=== PATIENT | female | born 1975 | race Caucasian/White ===

== ENCOUNTER 2023-07-12 07:44 | Emergency (ER) | payer OTHER, SELFPAY ==
[2023-07-12 07:51] VITALS: BP 136/96
[2023-07-12 08:12] LABS: % Basophils 0.8 % (0-2); % Eosinophils 2.6 % (0-6); % Immature Granulocytes 0.2 % (0-0.5); % Lymphocytes 34.7 % (20.5-51.1); % Monocytes 8.6 % (1.7-9.3); % Neutrophils 53.1 % (42.2-75.2); Absolute Basophils 0.1 10^3/uL (0-0.2); Absolute Eosinophils 0.2 10^3/uL (0-0.7); Absolute Lymphocytes 2.2 10^3/uL (1.2-3.4); Absolute Monocytes 0.5 10^3/uL (0.1-0.6); Absolute Neutrophils 3.3 10^3/uL (1.4-6.5); Hematocrit 38.1 % (37.0-47.0); Hemoglobin 12.9 g/dL (12.0-16.0); Mean Corp Hgb Conc. 33.9 g/dL (33.0-37.0); Mean Corpuscular Hgb 30.1 pg (27.0-31.0); Mean Corpuscular Volume 88.8 fL (81.0-99.0); Mean Platelet Volume 10.6 fL (7.4-10.4); Nucleated Red Blood Cells % 0 %; Platelet Count 378 10^3/uL (130-400); Red Blood Cell Count 4.29 10^6/uL (4.20-5.40); Red Cell Dist. Width 13.1 % (11.5-14.5); White Blood Cell Count 6.3 10^3/uL (4.8-10.8)
[2023-07-12 08:25] LABS: ALT (SGPT) 23 U/L (0-35); AST (SGOT) 24 U/L (14-36); Albumin 4.6 g/dl (3.5-5.0); Alkaline Phosphatase 56 U/L (38-126); Blood Urea Nitrogen 12 mg/dl (7-17); Calcium 9.6 mg/dl (8.4-10.2); Carbon Dioxide 22 mmol/L (22-30); Chloride 107 mmol/L (98-107); Glucose 114 mg/dl (70-99); Sodium 137 mmol/L (135-145); Total Bilirubin 0.3 mg/dl (0.2-1.3); Total Protein 7.3 g/dl (6.3-8.2); eGFR > 60.00
[2023-07-12 08:29] LABS: HCG, Serum Qualitative Screen Negative
[2023-07-12 08:35] LABS: Troponin I < 0.012 ng/ml
[2023-07-12 09:09] VITALS: BP 130/67
[2023-07-12 09:10] VITALS: BMI 28.8
[2023-07-12 10:00] VITALS: BP 122/67
--- NOTE | 2023-07-12 10:50 | ED.GENMED ---
History of Present Illness
General
Chief Complaint: Chest Problem
Source: patient and significant other (carroll)
Exam Limitations: none
Time Seen by Provider: 07/12/23 09:10
Travel History
Have you had any contact with someone who has COVID-19?: No
Do you have any symptoms of coronavirus? Fever > 100 degrees, chills, cough, shortness of breath, sore throat, loss of taste or smell, muscle aches, or headache?: No
History of Present Illness
History of Present Illness:
47-year-old female who presents with a variety of complaints. Most notably she is worried about her heart rate. She states her heart rate is typically 80 or 90 and recently has dropped down in the 50s when she is resting. Patient states she
checks her heart rate on her Apple Watch. She recently quit quit drinking alcohol. She also recently in the past had been on Valium but switched over to Xanax. She takes up to 2 mg of Xanax a day. Patient states she has been worried about her
heart rate dropping and whether she could pass out. 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 She states at times she feels a little out of breath and a little bit lightheaded. She also admits that her
anxiety is not controlled well. She is scheduled to see her psychiatrist again this week. She denies chest pain. No fevers. No illicit drugs. Patient states that she keeps checking [employer] and asking questions about her heart rate
Past History
Past History
ED Past Medical History: GERD and Psychiatric (Anxiety)
ED Past Surgical History: (X 2)
Social History
Tobacco: Former smoker
Drug: None
Personal:
Living: with family
Phy Exam
Physical Exam
Physical Exam:
CONSTITUTIONAL Patient alert and oriented to person, place and time. Well-appearing. Vital signs reviewed.
HEAD atraumatic, normocephalic.
EYES eyelids normal to inspection, Pupils equally round and reactive to light, Extraocular muscles intact, Conjunctiva normal, Sclera normal.
NECK normal range of motion, Trachea midline, no jugular venous distention.
RESPIRATORY CHEST No respiratory distress noted, Chest expansion equal, Bilateral breath sounds clear.
CARDIOVASCULAR regular rate and rhythm, Heart sounds normal.
ABDOMEN abdomen nontender, Bowel sounds normal. No distention.
BACK normal inspection, no obvious deformities
UPPER EXTREMITY range of motion normal, Motor strength normal, no cyanosis, no edema.
LOWER EXTREMITY range of motion normal, Motor strength normal, no cyanosis, no edema.
NEURO Speech normal, No focal motor deficits, Mccomb coma scale 15, Memory normal, Cranial Nerves intact to screening exam.
SKIN skin warm, dry, and normal in color.
PSYCHIATRIC patient oriented to person place and time, Normal affect.
Course
Orders/Labs/Results
Orders:
Orders
07/12/23 07:46
EKG [Electrocardiogram (*1)] Urgent
Reason for Study: Tachycardia
EKG- Treatment ONCE
07/12/23 07:55
Test Result ONCE
07/12/23 07:57
Complete Blood Count/With Diff Urgent
Comprehensive Metabolic Panel Urgent
HCG, Serum Qualitative Screen Urgent
Troponin I Urgent
Abnormal Lab Results
07/12/23
07:57
MPV 10.6 H fL
(7.4-10.4)
Glucose 114 H mg/dl
(70-99)
07/12/23 07:57
07/12/23 07:57
Vital Signs
Initial and Last Documented VS:
Initial Vital Signs
Temp Pulse Resp BP Pulse Ox
98.0 F 85 16 136/96 100
07/12/23 07:51 07/12/23 07:51 07/12/23 07:51 07/12/23 07:51 07/12/23 07:51
Last Documented Vital Signs
Temp Pulse Resp BP Pulse Ox
98.0 F 61 17 122/67 98
07/12/23 07:51 07/12/23 10:00 07/12/23 10:00 07/12/23 10:00 07/12/23 10:00
MDM/Problems Addressed
MDM/Problems Addressed:
Anxiety, benzodiazepine use
*Pulse Oximetry
Patient hypoxic: no
*EKG
Interpreted by ED Provider?: Yes
Interpretation: normal
Rate: normal
Rhythm: sinus
[place]: normal axis
Interval: normal interval
Ischemia: no ischemia
*Distribution Center Supervisor Interpretation
Rate: normal
Interpretation: normal
Rhythm: sinus
*Critical Care Note
Total Time (30-74mins, 75-104mins- exclusive of procedures): Not Applicable
Data Reviewed
Source: patient and significant other
Prescriptions/Medications Considered But Not Given:
Consider Lexapro with patient is tried that in the past and she will follow-up with her psychiatrist
Patient Management
Escalation/DeEscalation of care consider admission/obs:
Patient peers quite well. She is overly concerned about her heart rate. Her EKG is normal. She admits that she thinks much of this is just her anxiety and her perseveration over her heart rate and her medications and her symptoms. She truly has
minimal symptoms but more worried she will develop symptoms. She has an appoint with her psychiatrist this week. I did ask her to consider alternatives to halfway use of benzodiazepines. She agrees. Okay for discharge
ED Attending Note
-
Portions of this chart may have been created with voice recognition software.� Occasional wrong word or��sound alike� substitutions may have occurred due to the inherent limitations of voice recognition software.
Discharge Plan
Departure
Patient Disposition: Home (Routine Discharge)
Date of Disposition: 07/12/23
Time of Disposition: 10:56
Patient with high blood pressure during this ER visit?: No
Discharge Problem:
Dyspnea, Anxiety
Instructions: Anxiety, Adult (DC)
Prescriptions:
No Action
Pepcid AC 10 MG tablet,chewable
20 mg PO DAILY
diazepam [Valium] 10 MG tablet
10 mg PO DAILYPRN PRN (Reason: anxiety)
zolpidem [Ambien] 10 mg Tablet
10 mg PO HS PRN (Reason: sleep)
amoxicillin-pot clavulanate 875-125 mg tablet
1 tab PO BID Qty: 20 0RF
tramadol 50 mg tablet
50 mg PO Q8H PRN (Reason: pain) Qty: 14 0RF
pantoprazole [Protonix] 40 mg tablet,delayed release (DR/EC)
40 mg PO DAILY Qty: 10 0RF
ondansetron 4 mg tablet,disintegrating
4 mg PO Q8H PRN (Reason: nausea and vomiting) Qty: 10 0RF
Referrals:
Carlos Manuel Jimenez MD [Family Provider] -
Activity Restrictions/Additional Instructions:
Please see your doctor and psychiatrist in follow-up this week. Please strongly consider alternatives to chronic benzodiazepine use. In addition, I recommend that you refrain from checking your heart rate frequently and only if you have profound
symptoms. Return immediately for chest pain, palpitations, worsening shortness of breath, fevers or any other concerns.
Interventions
Interventions:
*Risk Screen - Suicide Last Done: 07/12/23 09:10
*General Assessment Last Done: 07/12/23 09:10
*Neglect/Abuse Screening Last Done: 07/12/23 09:10
ED- Fall Risk Assessment Last Done: 07/12/23 09:10
*ED COVID-19 Vaccine History Last Done: 07/12/23 07:51
ED- Cardiac Assessment Last Done: 07/12/23 09:14
ED- Pulmonary Assessment Last Done: 07/12/23 09:14
Discharge Date and Time
Print Language: YEMENI
[2023-07-12 11:00] VITALS: BP 120/77
== END 2023-07-12 11:10 | disposition home or self-care (01) ==
LOC: EMR 07:44
PROVIDERS: Emergency Medicine; EMERGENCY PHYSICIAN Emergency Medicine; FAMILY PHYSICIAN Family Medicine
DX: F41.9 Anxiety disorder, unspecified (principal); R06.00 Dyspnea, unspecified; Z87.891 Personal history of nicotine dependence
CPT/HCPCS: 99284; 80053; 84484; 84703; 85025; 93005

== ENCOUNTER 2023-10-11 15:41 | Emergency (ER) | payer OTHER, SELFPAY ==
[2023-10-11] VITALS (7 sets, daily range): BP systolic 109–151; BP diastolic 53–104; PULSE 80–108
--- NOTE | 2023-10-11 18:42 | ED.GENMED ---
History of Present Illness
General
Chief Complaint: Dizziness
Time Seen by Provider: 10/11/23 16:32
History of Present Illness
History of Present Illness:
48-year-old female presents for evaluation of persistent dizziness and headaches ongoing for the past several months. The dizziness is only present when she is upright or when she moves her head too quickly. She also reports frequent migraines
that have been increasing in frequency recently. Admits to left-sided tinnitus but denies hearing loss. No nausea or vomiting. No fevers or chills.
Past History
Past History
ED Past Medical History: GERD and Psychiatric (Anxiety)
ED Past Surgical History: (X 2)
Social History
Tobacco: Former smoker
Alcohol: Occasional
Drug: None
Personal:
Living: with family
Review of Systems
Review of Systems
Allergies reviewed?: Yes
All Other Systems: ROS reviewed and negative except as documented in HPI and ROS
Phy Exam
Physical Exam
Physical Exam:
GEN: Well appearing, NAD, WDWN
HEENT: Oral mucosa moist, no scleral icterus, no nasal congestion, left TM clear with no erythema
Cardiac: Regular rate
Lung: No respiratory distress, no tachypnea
MSK: No gross deformity or injuries
Skin: Good color, no pallor or jaundice, no rashes
Neuro: AO x3; CN II-XII grossly intact. BUE strength 5/5 in all johnson, sensation intact and symmetric. BLE strength 5/5 in all johnson, sensation intact and symmetric
Psych: Calm, cooperative
Course
Orders/Labs/Results
Orders:
Orders
10/11/23 15:52
Electrocardiogram (*1) Urgent
Reason for Study: Chest Pain
10/11/23 15:53
EKG- Treatment ONCE
10/11/23 16:57
CT Head W/o Iv Contrast Urgent
Comment:
Reason For Exam: dizziness/headaches
Vital Signs
Initial and Last Documented VS:
Initial Vital Signs
Temp Pulse Resp BP Pulse Ox
98.2 F 110 20 151/104 100
10/11/23 15:47 10/11/23 15:47 10/11/23 15:47 10/11/23 15:47 10/11/23 15:47
Last Documented Vital Signs
Temp Pulse Resp BP Pulse Ox
98.2 F 92 20 125/83 100
10/11/23 15:47 10/11/23 20:08 10/11/23 20:08 10/11/23 20:08 10/11/23 16:45
MDM/Problems Addressed
MDM/Problems Addressed:
CT of the head was obtained due to the progression of headaches coupled with dizziness to rule out a cerebellar mass and this was negative. Patient's symptoms are most compatible with peripheral/vestibular etiology such as M�ni�re's disease. Will
trial a course of steroids and refer to ENT as an outpatient
*Critical Care Note
Total Time (30-74mins, 75-104mins- exclusive of procedures): Not Applicable
ED Attending Note
-
Portions of this chart may have been created with voice recognition software.� Occasional wrong word or��sound alike� substitutions may have occurred due to the inherent limitations of voice recognition software.
Discharge Plan
Departure
Patient Disposition: Home (Routine Discharge)
Date of Disposition: 10/11/23
Time of Disposition: 19:50
Patient with high blood pressure during this ER visit?: No
Discharge Problem:
Left-sided tinnitus, Dizziness
Instructions: Meniere disease, Dizziness, Nonvertigo, (DC)
Prescriptions:
New
methylprednisolone [Medrol (Hubert)] 4 mg tablets,dose pack
See Rx Instructions .ROUTE .COMPLEX Qty: 21 0RF
Rx Instructions:
orally per package directions
No Action
Pepcid AC 10 MG tablet,chewable
20 mg PO DAILY
diazepam [Valium] 10 MG tablet
10 mg PO DAILYPRN PRN (Reason: anxiety)
zolpidem [Ambien] 10 mg Tablet
10 mg PO HS PRN (Reason: sleep)
amoxicillin-pot clavulanate 875-125 mg tablet
1 tab PO BID Qty: 20 0RF
tramadol 50 mg tablet
50 mg PO Q8H PRN (Reason: pain) Qty: 14 0RF
pantoprazole [Protonix] 40 mg tablet,delayed release (DR/EC)
40 mg PO DAILY Qty: 10 0RF
ondansetron 4 mg tablet,disintegrating
4 mg PO Q8H PRN (Reason: nausea and vomiting) Qty: 10 0RF
Referrals:
IVORY MIXON, [Family Provider] -
Interventions
Interventions:
*Risk Screen - Suicide Last Done: 10/11/23 15:47
*General Assessment Last Done: 10/11/23 15:47
*Neglect/Abuse Screening Last Done: 10/11/23 15:47
ED- Fall Risk Assessment Last Done: 10/11/23 17:26
*Nursing Disposition Last Done: 10/11/23 20:08
ED- Neurological Assessment Last Done: 10/11/23 17:26
ED- Cardiac Assessment Last Done: 10/11/23 17:26
ED Swallowing Screen Last Done: 10/11/23 17:26
Discharge Date and Time
Discharge Date/Time: 10/11/23 20:09
Print Language: THAI
== END 2023-10-11 20:09 | disposition home or self-care (01) ==
LOC: EMR 15:41
PROVIDERS: EMERGENCY PHYSICIAN Emergency Medicine; FAMILY PHYSICIAN Family Medicine Sports Medicine
DX: H93.12 Tinnitus, left ear (principal); R42 Dizziness and giddiness; R51.9 Headache, unspecified; Z87.891 Personal history of nicotine dependence
CPT/HCPCS: 99284; 70450; 93005